=== PATIENT | female | born 1950 | race Two or more races ===

== ENCOUNTER 2017-02-18 10:18 | Emergency (ER) | payer MEDICAID, OTHER ==
[~2017-02-18] VITALS: Ht 162.6 cm; Wt 72.6 kg
[2017-02-18 10:43] VITALS: BP 142/74
[2017-02-18] MEDS ORDERED: KETOROLAC TROMETH 60MG/2ML VIAL IM ONE (12:00)
== END 2017-02-18 12:56 | disposition home or self-care (01) ==
LOC: ER 10:18
DX: M23.91 Unspecified internal derangement of right knee (principal)
CPT/HCPCS: 73562; 96372; 99284; J1885